=== PATIENT | female | born 1995 | race Caucasian/White ===

== ENCOUNTER 2022-06-20 23:04 | Emergency (ER) | payer OTHER ==
[~2022-06-20] VITALS: Ht 165.1 cm; Wt 70.3 kg
[2022-06-21] MEDS ORDERED: DIFLUCAN150 MG PO (00:21)
== END 2022-06-21 00:33 | disposition home or self-care (01) ==
LOC: ED 23:04
DX: E11.65 Type 2 diabetes mellitus with hyperglycemia (principal); R81 Glycosuria; J45.909 Unspecified asthma, uncomplicated
CPT/HCPCS: 36415; 80053; 81003; 84703; 85025; 99284